=== PATIENT | female | born 1995 | race Caucasian/White ===

== ENCOUNTER 2019-03-05 10:32 | Day surgery (SDC) | payer MEDICAID ==
[2019-03-05] VITALS (13 sets, daily range): BP systolic 101–114; BP diastolic 58–72; PULSE 65–94; RESP 11–24; Ht 165.1 cm; Wt 64.1 kg
[~2019-03-05] VITALS: Ht 165.1 cm; Wt 64.1 kg
[2019-03-05] MEDS ORDERED: LACTATED RINGER'S 1,000 ML IV SCH (12:00)
[2019-03-05] MEDS ORDERED: DEXAMETHASONE 4 MG/ML 5 ML INJ ONE (13:00)
[2019-03-05] MEDS ORDERED: ROCURONIUM 50 MG INJ ONE (13:09)
[2019-03-05] MEDS ORDERED: METOCLOPRAMIDE 10 MG INJ ONE (13:10)
[2019-03-05] MEDS ORDERED: ONDANSETRON 4 MG INJ ONE (13:10)
[2019-03-05] MEDS ORDERED: MIDAZOLAM 1 MG/ML 2 ML INJ ONE (13:10)
[2019-03-05] MEDS ORDERED: SUGAMMADEX SODIUM 200 MG/2 ML VIAL IV ONE (13:10)
[2019-03-05] MEDS ORDERED: FENTAnyl 50 MCG/ML VIAL ONE (13:10)
[2019-03-05] MEDS ORDERED: PROPOFOL 20 ML ONE (13:11)
[2019-03-05] MEDS ORDERED: LIDOCAINE 100 MG SYRINGE ONE (13:11)
[2019-03-05] MEDS ORDERED: CEFAZOLIN 1 GM INJ ONE ×2 (13:11→13:24)
[2019-03-05] MEDS ORDERED: PROCHLORPERAZINE 10 MG INJ IV PRN (14:00)
[2019-03-05] MEDS ORDERED: OXYCODONE/ACETAMINOPHEN (5/325) TAB PO PRN (14:00)
[2019-03-05] MEDS ORDERED: MEPERIDINE 25 MG INJ IV PRN (14:00)
[2019-03-05] MEDS ORDERED: HYDROmorphONE 1 MG/5 ML IV SYRINGE IV PRN (14:00)
[2019-03-05] MEDS ORDERED: FENTAnyl 50 MCG/ML VIAL IV PRN (14:00)
[2019-03-05] MEDS ORDERED: ONDANSETRON 4 MG INJ IV PRN (14:00)
== END 2019-03-05 16:30 | disposition home or self-care (01) ==
LOC: SDS 10:32
PROVIDERS: ATTEND Obstetrics & Gynecology
DX: Z30.2 Encounter for sterilization (principal)
CPT/HCPCS: 58670; 84702; 85025; 86850; 86900; 86901; J0690; J1100; J2001; J2175; J2250; J2405; J2765; J3010; Z7512; Z7610